=== PATIENT | male | born 1935 | race Caucasian/White ===

== ENCOUNTER 2016-09-30 09:07 | Emergency (ER) | payer OTHER ==
[~2016-09-30] VITALS: Ht 180.3 cm; Wt 83.9 kg
[~2016-09-30 09:07] MED LIST: ASPIRIN325 PO; CO Q-10100 MG PO; COUMADIN 2.5MG2.5 M1 PO; COUMADIN 3 MG TA3 MG PO; COUMADIN OR; FENOFIBRATE160 MG PO; MULTIVITAMINS OR; PRAVACHOL20 MG PO; PRINIVIL OR; RAPAFLO4 MG PO; VITAMIN D3400 UNIT PO; ZOCOR OR
[2016-09-30 10:25] LABS: INR 3.3; PROTIME 34.3 Seconds (9.3-11.4)
[2016-09-30] MEDS ORDERED: KEFLEX500 MG PO (10:56)
[2016-09-30 11:19] VITALS: BP 176/64
== END 2016-09-30 11:20 | disposition home or self-care (01) ==
LOC: ER 09:07
PROVIDERS: Emergency Medicine
DX: L03.116 Cellulitis of left lower limb (principal); I10 Essential (primary) hypertension; E78.00 Pure hypercholesterolemia, unspecified; F10.99 Alcohol use, unspecified with unspecified alcohol-induced disorder; F17.210 Nicotine dependence, cigarettes, uncomplicated; Z86.73 Personal history of transient ischemic attack (TIA), and cerebral infarction without residual deficits; Z98.890 Other specified postprocedural states; Z86.718 Personal history of other venous thrombosis and embolism

== ENCOUNTER → 2016-10-03 | Outpatient (CLI) | payer OTHER ==
[~2016-10-03] MED LIST changes: +KEFLEX500 MG PO
== END ==
LOC: ULTRA 15:55
DX: M79.605 Pain in left leg (principal); R60.0 Localized edema

== ENCOUNTER → 2017-05-26 | Outpatient (CLI) | payer OTHER | LOC: RAD 15:09 | DX: M17.11 Unilateral primary osteoarthritis, right knee (principal); M25.461 Effusion, right knee; I70.0 Atherosclerosis of aorta ==

== ENCOUNTER → 2019-08-25 | Outpatient (CLI) | payer OTHER | LOC: SJCVC 13:32 | DX: I44.0 Atrioventricular block, first degree (principal); I10 Essential (primary) hypertension; E78.2 Mixed hyperlipidemia; Z79.01 Long term (current) use of anticoagulants; Z79.899 Other long term (current) drug therapy; Z87.891 Personal history of nicotine dependence; Z86.2 Personal history of diseases of the blood and blood-forming organs and certain disorders involving the immune mechanism ==

== ENCOUNTER 2019-10-14 18:00 | Emergency (ER) | payer OTHER ==
[~2019-10-14] VITALS: Ht 180.3 cm; Wt 83.9 kg
[2019-10-14] MEDS ORDERED: EZALLOR SPRINKL20 MG PO (18:31)
[2019-10-14] MEDS ORDERED: EDARBYCLOR 40-1 EAC1 PO (18:33)
[2019-10-14] MEDS ORDERED: NORVASC5 M1 PO (18:33)
[2019-10-14 18:52] LABS: HEMATOCRIT 41.1 % (42.0-52.0); HEMOGLOBIN 13.8 gm/dL (14.0-18.0); MCH 30.3 pg (26.0-34.0); MCHC 33.6 g/dL (28.0-37.0); MCV 90.3 fL (80.0-100.0); RBC 4.55 mil/uL (4.50-6.00); RDW 14.1 % (10.5-14.5); WBC 14.4 thou/uL (4.0-11.0)
[2019-10-14 19:04] LABS: URINE BILIRUBIN NEGATIVE (Negative); URINE BLOOD NEGATIVE (Negative); URINE CLARITY CLEAR; URINE COLOR YELLOW; URINE GLUCOSE-RANDOM* TRACE (Negative); URINE KETONES NEGATIVE (Negative); URINE LEUKOCYTES-REFLEX NEGATIVE (Negative); URINE NITRITE-REFLEX NEGATIVE (Negative); URINE PROTEIN (DIPSTICK) NEGATIVE (Negative); URINE UROBILINOGEN 0.2 E.U./dl (0.2-1.0)
[2019-10-14 19:12] LABS: ANION GAP 7 mmol/L (7-16); BUN 28 mg/dL (7-18); CALCIUM 9.2 mg/dL (8.5-10.1); CHLORIDE 100 mmol/L (98-107); CO2 26 mmol/L (21-32); CREATININE 1.4 mg/dL (0.7-1.3); GLUCOSE 180 mg/dL (74-106); POTASSIUM 3.8 mmol/L (3.5-5.1); SODIUM 133 mmol/L (136-145)
[2019-10-14 19:16] LABS: ALBUMIN 3.2 g/dL (3.4-5.0); SGOT 21 U/L (15-37); SGPT 28 U/L (30-65); TOTAL BILIRUBIN 0.9 mg/dL (0.2-1.0); TOTAL PROTEIN 6.6 g/dL (6.4-8.2); TROPONIN-I <0.06 ng/mL (<0.06)
[2019-10-14 20:20] LABS: INR 1.5; PROTIME 15.8 Seconds (9.3-11.4)
[2019-10-14 21:14] VITALS: BP 151/67
== END 2019-10-14 21:05 | disposition home or self-care (01) ==
LOC: ER 18:00
PROVIDERS: Student in an Organized Health Care Education/Training Program
DX: R50.9 Fever, unspecified (principal); I10 Essential (primary) hypertension; E78.5 Hyperlipidemia, unspecified; F17.210 Nicotine dependence, cigarettes, uncomplicated; Z20.828 Contact with and (suspected) exposure to other viral communicable diseases; Z86.73 Personal history of transient ischemic attack (TIA), and cerebral infarction without residual deficits; Z79.82 Long term (current) use of aspirin; Z79.899 Other long term (current) drug therapy

== ENCOUNTER → 2020-03-26 | Outpatient (CLI) | payer OTHER ==
[~2020-03-26] MED LIST changes: +EDARBYCLOR 40-1 EAC1 PO; +EZALLOR SPRINKL20 MG PO; +NORVASC5 M1 PO
== END ==
LOC: SJCVCIMAG 09:16
PROVIDERS: ATTEND Internal Medicine Cardiovascular Disease
DX: I07.1 Rheumatic tricuspid insufficiency (principal); I49.3 Ventricular premature depolarization; I10 Essential (primary) hypertension; E78.2 Mixed hyperlipidemia; Z79.01 Long term (current) use of anticoagulants; Z79.899 Other long term (current) drug therapy; Z87.891 Personal history of nicotine dependence

== ENCOUNTER → 2021-01-21 | Outpatient (CLI) | payer OTHER | LOC: SJCVC 10:31 | PROVIDERS: ATTEND Internal Medicine Cardiovascular Disease | DX: R94.31 Abnormal electrocardiogram [ECG] [EKG] (principal); I48.91 Unspecified atrial fibrillation; I10 Essential (primary) hypertension; E78.00 Pure hypercholesterolemia, unspecified; I65.23 Occlusion and stenosis of bilateral carotid arteries; E78.5 Hyperlipidemia, unspecified; Z79.01 Long term (current) use of anticoagulants; Z86.2 Personal history of diseases of the blood and blood-forming organs and certain disorders involving the immune mechanism; Z01.818 Encounter for other preprocedural examination; Z87.891 Personal history of nicotine dependence; Z72.89 Other problems related to lifestyle; Z79.899 Other long term (current) drug therapy; Z88.2 Allergy status to sulfonamides ==

== ENCOUNTER → 2021-01-31 | Outpatient (CLI) | payer OTHER ==
[~2021-01-31] MED LIST changes: +ALIGN4 MG PO; +CENTRUM SILVER1 EAC7 PO; +MELATONIN5 M1 PO; +TYLENOL PM EX-1 EACH PO; +VITAMIN C1000 MG PO; +VITAMIN D3125 MCG PO; +WARFARIN SODIU2.5 MG PO
[2021-01-31 12:17] LABS: HEMATOCRIT 47.4 % (42.0-52.0); HEMOGLOBIN 15.5 gm/dL (14.0-18.0); MCH 30.4 pg (26.0-34.0); MCHC 32.6 g/dL (28.0-37.0); MCV 93.1 fL (80.0-100.0); RBC 5.09 mil/uL (4.50-6.00); RDW 14.4 % (10.5-14.5); WBC 6.8 thou/uL (4.0-11.0)
[2021-01-31 12:21] LABS: ALBUMIN 3.8 g/dL (3.4-5.0); CALCIUM 9.2 mg/dL (8.5-10.1); CREATININE 1.1 mg/dL (0.7-1.3); POTASSIUM 4.3 mmol/L (3.5-5.1)
[2021-01-31 12:36] LABS: INR 2.52; PROTIME 26.3 Seconds (10.5-12.1)
[2021-01-31 12:37] LABS: URINE BILIRUBIN NEGATIVE (Negative); URINE BLOOD NEGATIVE (Negative); URINE CLARITY CLEAR; URINE COLOR YELLOW; URINE GLUCOSE-RANDOM* NEGATIVE (Negative); URINE KETONES NEGATIVE (Negative); URINE LEUKOCYTES-REFLEX NEGATIVE (Negative); URINE NITRITE-REFLEX NEGATIVE (Negative); URINE PROTEIN (DIPSTICK) NEGATIVE (Negative); URINE SPECIFIC GRAVITY 1.025 (1.005-1.035); URINE UROBILINOGEN 0.2 E.U./dl (0.2-1.0)
== END ==
LOC: PAC 10:34
PROVIDERS: ATTEND Orthopaedic Surgery
DX: Z01.812 Encounter for preprocedural laboratory examination (principal); M17.11 Unilateral primary osteoarthritis, right knee; Z91.048 Other nonmedicinal substance allergy status

== ENCOUNTER → 2021-03-01 | Outpatient (CLI) | payer OTHER | LOC: SJCVC 09:49 | PROVIDERS: ATTEND Internal Medicine Cardiovascular Disease | DX: Z51.81 Encounter for therapeutic drug level monitoring (principal); Z79.01 Long term (current) use of anticoagulants ==

== ENCOUNTER 2021-03-04 09:17 | Observation (INO) | payer OTHER ==
[~2021-03-04] VITALS: Ht 180.3 cm; Wt 82.6 kg
[2021-03-04] VITALS (10 sets, daily range): BP systolic 122–148; BP diastolic 61–75
--- NOTE | ~2021-03-04 | O ---
[facility] [place] [address] OPERATIVE REPORT Name: BELKYS MACKEY Room #: 150-5 [facility] M.R.#: [id number] Admission: 03/04/21 Attend Phys: Howie Braga MD Discharge: Date of : 33 Report #: [id number] THIS REPORT FOR: cc: Shaw Gould MD, Neal A. MD Abraham,Howie Nixon MD ~ DATE OF SERVICE: 03/04/2021 PREOPERATIVE DIAGNOSIS: Right knee osteoarthritis. POSTOPERATIVE DIAGNOSIS: Right knee osteoarthritis. PROCEDURE: Right total knee arthroplasty using Navio robotic assistance. SURGEON: Howie Braga MD. RETOUCHER: Beena Gomez PA-C. INDICATION FOR RETOUCHER: Throughout the case, extensive retraction and manipulation of the knee was required. This was afforded to me by my melter assistant. ANESTHESIA: LMA with adductor canal block. IMPLANTS: [employer]rez [employer] Nephew size 6 Journey II BCS cobalt chrome femur, a size 5 tibia, size 10 constrained polyethylene and size 35 patella. TOURNIQUET TIME: 49 minutes. ESTIMATED BLOOD LOSS: 25 mL COMPLICATIONS: None. SPECIMENS: None. CONDITION UPON LEAVING THE OR: Stable. INDICATIONS FOR PROCEDURE: The patient is an 85-year-old gentleman with right knee osteoarthritis. He had failed conservative measures for this and after discussion with him, he elected for right total knee arthroplasty. DESCRIPTION OF PROCEDURE: Risks, benefits, alternatives, complications were discussed in detail with the patient including but not limited to risk of anesthesia, risk of damage to nerves, arteries, blood vessels, risk for infection, bleeding, risk for continued knee pain, need for reoperation. Informed consent was obtained from the patient. The right knee was appropriately marked in the preoperative holding area. IV Ancef was given for [address] [place] [address] OPERATIVE REPORT Name: BELKYS MACKEY Room #: 150-5 [facility] Jaya#: [id number] Admission: 03/04/21 Attend Phys: Howie Braga MD Discharge: Date of : 34 Report #: [id number] preoperative antibiotics. Adductor canal block was placed by anesthesia and brought to the operating room and placed in the supine position on the operating room table. LMA anesthesia was induced without complication. Tourniquet was placed on the right thigh. Right lower extremity was prepped and draped in normal sterile fashion. Timeout was performed properly identifying the patient and procedure as well as the instrumentation and implants. All in the operating room in agreement. Right lower extremity was exsanguinated and tourniquet inflated. Tourniquet time was 49 minutes. Standard midline approach to knee was made with 10 blade through the skin. Dissection was taken down sharply to the fascia and deep flaps were developed medially and laterally. Fresh 10 blade was used to make a medial parapatellar arthrotomy and the knee was inspected. There was severe tricompartmental osteoarthritis. ACL and PCL were removed sharply. Reference pins were placed in the femur and the tibia. The knee was digitally mapped using the [employer] robotic system. Intraoperative plan was made. We sized the size 6 femur, size 5 tibia and a 10 spacer. After acceptance of the intraoperative plan, the distal femoral cut was made with Navio bur. Distal femoral cutting block was pinned in place and chamfer cuts were made. Attention was turned to the tibia. Remainder of the menisci removed with Bovie cautery. Tibial resection guide was pinned in place using Navio for placement and tibial resection was made. Flexion and extension gaps were checked and found to have good balance in flexion and extension both medially and laterally. Tibia sized, found to be a size 5. Size 5 tibial trial was placed, pinned and punched. Size 6 femoral trial was placed and the box cut was made. This was then trialed with a size 10 polyethylene. Size 10 polyethylene demonstrated 1-2 mm of laxity both medially and laterally throughout range of motion. In deep flexion, there was up to 3 mm laterally and it was felt we can make up for this with a constrained implant, 9 mm of bone was resected from the posterior surface of the patella and a size 35 patellar trial button was placed. Knee was taken through range of motion, found to be stable, found to have good patellar tracking. Trial components were removed. Bone ends were thoroughly irrigated with normal saline. A final size 5 tibia, size 6 Journey II BCS cobalt chrome femur and a size 35 patella were cemented in place using standard cementation techniques. While the cement cured, a periarticular injection consisting of morphine, ropivacaine, epinephrine, Toradol was placed around the knee joint capsule. After the cement cured, the tourniquet was deflated and hemostasis was obtained with Bovie cautery. Final size 10 constrained polyethylene was placed. A gram of vancomycin was placed deep in the joint. Fascia was closed with 0 Vicryl. Skin was closed with 2-0 Vicryl, skin staple and a SEUN dressing was applied. The patient tolerated this procedure well and went to recovery room under care of anesthesia postoperatively. By: [id number] Howie Braga MD /nt
[2021-03-04 11:49] LABS: INR 1.09; PROTIME 11.8 Seconds (10.5-12.1)
--- NOTE | 2021-03-04 19:18 | NUR ---
ASSUMED PT CARE UPON ADMISSION TO UNIT AROUND 1600. PATIENT A&OX4, ABLE TO MAKE NEEDS KNOWN. PATIENT REPORTS PAIN MINIMAL, POLAR PACK IN PLACE. PATIENT DRESSING IS INTACT. IV REMAINS PATENT, FLUIDS INFUSING. FALL PRECUATIONS ARE IN PLACE, CALL LIGHT WITHIN REACH.
--- NOTE | 2021-03-05 03:58 | NUR ---
ASSESSED AT START OF SHIFT. EVENING MEDS GIVEN AND PT FLOWER IT WELL. IV INTACT AND FLUIDS INFUSING. SCD'S IN PLACE. AMBIEN GIVEN FOR SLEEP. URINAL AT BEDSIDE WILL CONT TO MONITIOR.
[2021-03-05 04:11] VITALS: BP 121/69
[2021-03-05 07:40] VITALS: BP 112/61
--- NOTE | 2021-03-05 09:19 | NUR ---
cm visited with pt and his at bedside. he lives at home wit his . right knee. has fww already. 1 step to enter and then steps to basement for laundry but his can do the laundry now. manage own medication, drives vehicle. has outpt rehab set up at [facility] on [address] at 2pm 03/06. He hopefully he can dc home today.
--- NOTE | 2021-03-05 13:30 | NUR ---
Pt A & O x4. Pt received discharge orders to home. Pt Vs stable. Pt discharge instructions reveiwed with pt aNd pt verbalized understanding and signed discharge orders. Pt wheeled to front enterence in wheelchair by staff with personal belongings and discharge instructions and left hospital without incident in private vehicle.
== END 2021-03-05 14:55 | disposition home or self-care (01) ==
LOC: OR → TBA 09:24 → OR 10:38 → 4S 15:30 → OR 15:31 → 4S 15:31
PROVIDERS: ADMIT Orthopaedic Surgery; ATTEND Orthopaedic Surgery
DX: M17.11 Unilateral primary osteoarthritis, right knee (principal); Z20.822 Contact with and (suspected) exposure to COVID-19; I10 Essential (primary) hypertension; E78.5 Hyperlipidemia, unspecified; Z79.899 Other long term (current) drug therapy
CPT/HCPCS: 50010; 50101; 50415; 50954; 51130; 51225; 51412; 53000; 53078; 56527; 56528; 57095; 57103; 57110; 57127; 57179; 58239; 59024; 62110; 62900; 70005

== ENCOUNTER → 2021-03-07 | Outpatient (CLI) | payer OTHER | LOC: SJCVC 10:48 | PROVIDERS: ATTEND Internal Medicine Cardiovascular Disease | DX: Z51.81 Encounter for therapeutic drug level monitoring (principal); E78.5 Hyperlipidemia, unspecified; I10 Essential (primary) hypertension; Z79.01 Long term (current) use of anticoagulants; Z79.899 Other long term (current) drug therapy; Z88.2 Allergy status to sulfonamides; Z87.891 Personal history of nicotine dependence; Z72.89 Other problems related to lifestyle ==